=== PATIENT | female | born 1975 | race Two or more races ===

== ENCOUNTER 2018-02-17 12:22 | Emergency (ER) | payer OTHER ==
[~2018-02-17] VITALS: Ht 157.5 cm; Wt 59.9 kg
[2018-02-17 12:29] VITALS: Ht 157.5 cm; Wt 59.9 kg
[2018-02-17 13:20] LABS: CALCIUM 8.3 mg/dL (8.5-10.1); CARBON DIOXIDE 28.3 mmol/L (21-32); CHLORIDE SERUM 107 mmol/L (98-107); CREATININE SERUM 0.6 mg/dL (0.6-1.0); GFR1 > 60 mL/min; GLUCOSE SERUM 88 mg/dL (74-106); POTASSIUM SERUM 3.7 mmol/L (3.5-5.1); SODIUM SERUM 142 mmol/L (136-145)
[2018-02-17 14:16] LABS: BASOPHIL % 0.7 % (0-2); PLATELET COUNT 366 x10^3mcL (130-400)
[2018-02-17 16:05] VITALS: BP 132/79
== END 2018-02-17 16:05 | disposition short-term general hospital (02) ==
LOC: EDBD 12:22 → ED 12:22
PROVIDERS: Emergency Medicine
DX: R55 Syncope and collapse (principal); I21.4 Non-ST elevation (NSTEMI) myocardial infarction
CPT/HCPCS: 83880; 85378; J2405; J7030; Q0092